=== PATIENT | female | born 1960 | race Caucasian/White ===

== ENCOUNTER 2018-05-05 01:00 | Emergency (ER) | payer OTHER ==
[~2018-05-05] VITALS: Ht 149.9 cm; Wt 56.5 kg
[2018-05-05 01:48] LABS: CULTURE INDICATED? YES; MICROSCOPIC INDICATED
[2018-05-05] MEDS ORDERED: KETOROLAC 30 MG/1 ML ONE (01:48)
[2018-05-05] MEDS ORDERED: ONDANSETRON 2MG/ML, 2ML ONE (01:48)
[2018-05-05] MEDS ORDERED: ONDANSETRON 2MG/ML, 2ML IVPush ONE (02:00)
[2018-05-05] MEDS ORDERED: KETOROLAC 30 MG/1 ML IVPush ONE (02:00)
[2018-05-05 02:26] LABS: ALBUMIN 3.9 g/dL (3.4-5.0); ANION GAP 11 mmol/L (5-15); CALCIUM 9.3 mg/dL (8.5-10.1); CHLORIDE 107 mmol/L (98-107)
[2018-05-05 02:28] LABS: CREATININE 1.21 mg/dL (0.55-1.02)
[2018-05-05 02:31] LABS: BASOPHILS # (AUTO) 0.08 x10^3/uL (0-0.1); BASOPHILS % (AUTO) 1 % (0-1); EOSINOPHILS # (AUTO) 0.05 x10^3/uL (0-0.4); EOSINOPHILS % (AUTO) 0 % (1-7); LYMPHOCYTES # (AUTO) 1.71 x10^3/uL (1-3.4); LYMPHOCYTES % (AUTO) 12 % (22-44); MD SCAN; MEAN CORPUSCULAR HEMOGLOBIN 30.8 pg (27.0-34.8); MEAN CORPUSCULAR HGB CONC 33.8 g/dL (32.4-35.8); MEAN CORPUSCULAR VOLUME 91.3 fL (80-100); MEAN PLATELET VOLUME 9.8 fL (7.4-10.4); MONOCYTES # (AUTO) 0.59 x10^3/uL (0.2-0.8); MONOCYTES % (AUTO) 4 % (2-9); NEUTROPHILS # (AUTO) 12.05 x10^3/uL (1.8-6.8); NEUTROPHILS % (AUTO) 83 % (42-75); PLATELET COUNT 165 x10^3/uL (130-400); RED BLOOD COUNT 4.48 x10^6/uL (3.82-5.3)
[2018-05-05 03:04] VITALS: BP 133/84
== END 2018-05-05 03:06 | disposition home or self-care (01) ==
LOC: ED 03:00
DX: N13.2 Hydronephrosis with renal and ureteral calculous obstruction (principal)
CPT/HCPCS: 36415; 74176; 80048; 81001; 82040; 85025; 87086; 96374; 96375; 99285; J1885; J2405